=== PATIENT | female | born 1975 | race Two or more races ===

== ENCOUNTER 2025-08-03 16:29 | Emergency (ER) | payer MEDICAID ==
[~2025-08-03] VITALS: Ht 177.8 cm; Wt 90.7 kg
[2025-08-03] MEDS: IV NORMAL SALINE 1000 ML BAG IV ONE (16:51)
[2025-08-03 16:56] LABS: RED BLOOD CELL COUNT(AUTO) 4.03 MIL/uL (3.63-4.92)
[2025-08-03 17:01] LABS: PLATELET COUNT (AUTO) 200 K/uL (179-408); RED CELL DISTRIBUTION WIDTH 21.2 % (12.3-17.7); WHITE BLOOD COUNT (AUTO) 5.4 K/uL (3.8-11.8)
[2025-08-03 17:06] LABS: CREATININE 0.8 mg/dL (0.6-1.3); SODIUM SERUM 140.0 mmol/L (136-145); UREA NITROGEN, BLOOD 21.0 mg/dL (7-18)
[2025-08-03 17:11] LABS: ASPARTATE AMINOTRANSFERASE 51.0 U/L (15-37); TOTAL PROTEIN, SERUM 7.2 g/dL (6.4-8.2)
[2025-08-03] MEDS ORDERED: SOD FERRIC GLUC COMPLX/SUCROSE 62.5 MG/5 ML AMPUL IV ONE (17:52)
[2025-08-03] MEDS: SOD FERRIC GLUC COMPLX/SUCROSE 125 MG in IV NORMAL SALINE 100 ML IV ONE (18:08)
[2025-08-03 18:24] VITALS: BP 126/63
[2025-08-03 18:24] LABS: IRON, SERUM 16 ug/dL (50-175)
[2025-08-03 20:42] LABS: EOSINOPHILS % (MANUAL) 1 % (0-8); LYMPHOCYTES % (MANUAL) 30 % (20-40); MONOCYTES % (MANUAL) 8 % (2-10); NEUTROPHILS % (MANUAL) 61 % (42-75)
[2025-08-03 20:43] LABS: PLATELET ESTIMATE ADEQUATE
[2025-08-03 21:39] VITALS: BP 125/65; O2SAT 99
== END 2025-08-03 20:15 | disposition home or self-care (01) ==
LOC: ER 16:32
DX: D50.9 Iron deficiency anemia, unspecified (principal); R10.9 Unspecified abdominal pain; F10.10 Alcohol abuse, uncomplicated; F15.10 Other stimulant abuse, uncomplicated; Z87.442 Personal history of urinary calculi; Z88.5 Allergy status to narcotic agent; Z88.6 Allergy status to analgesic agent; Z98.84 Bariatric surgery status; W19.XXXA Unspecified fall, initial encounter; Y93.89 Activity, other specified; Y92.89 Other specified places as the place of occurrence of the external cause; Y99.9 Unspecified external cause status
CPT/HCPCS: 99285; 74176; 96365; 96361; 80076; 80048; 82728; 83550; 83690; 85007; 85027; 36415; 93005; 83605; J2916; J7040; 70030-TC; A4606; A4663